=== PATIENT | female | born 1970 | race Caucasian/White ===

== ENCOUNTER 2019-08-20 11:01 | Emergency (ER) | payer BC, SELFPAY ==
[2019-08-20 11:38] VITALS: BP 122/73; PULSE 79; RESP 20; TEMP 37.3; O2SAT 99
--- NOTE | 2019-08-20 11:56 | ED.FEMALEGU ---
HPI - Female Genitourinary General Chief complaint: Urogenital-Female Stated complaint: pos bladder infection Time Seen by Provider: 08/20/19 11:56 Source: patient Mode of arrival: ambulatory Limitations: no limitations History of Present Illness HPI Narrative: A 49 y/o female, who is a nonsmoker/nondrinker, presents to with c/o dysuria for 1 day. She reports a subjective fever, urinary frequency, and back pain, but denies N/V. Pt has a PMHx of interstitial cystitis, UTIs, and vaginal yeast infections. Pt was on Elmiron for years, but stopped taking it after she changed jobs and her insurance did not cover the cost. Pt notes that she is currently on her period but her symptoms feel urinary related. It has been 3 years since her last UTI. Pt has been on Septra and Bactrim in the past. Pertinent past history: recurrent UTIs, interstitial cystits and other (vaginal yeast infection) Onset (ago): day(s) (1) Urinary symptoms: Dysuria and Frequency Related Data Allergies Allergy/AdvReac Type Severity Reaction Status Date / Time Iodinated Contrast Media Allergy Mild Rash Verified 08/20/19 11:35 iodine Allergy Unknown Rash Verified 08/20/19 11:35 Contrast Media Allergy Intermediate Rash Uncoded 06/26/15 07:36 Review of Systems Review of Systems: Narrative: General/Constitutional: Reports: subjective fever; Denies: weight loss Eyes: Denies: Redness,discharge Ears/Nose/Throat: Denies: Epistaxis,ear discharge Respiratory: Denies: Hemoptysis Gastrointestinal: Denies: N/V, Bleeding-rectal Urinary: Reports: dysuria, urinary frequency Musculoskeletal: Reports: back pain Skin: Denies: Lumps, eruption Neurologic: Denies: Focal Weakness,Sz Hematologic: Denies: Petechiae/Purpura Psychiatric: Denies: Suicidal ideation All systems reviewed & are unremarkable except as noted in HPI and below PMFSH Past Medical History Medical History (Updated 08/20/19 @ 12:12 by Alexa Anthony) Anxiety Depression Thyroid mass with needle Bx Surgical History Surgical History (Updated 08/20/19 @ 12:12 by Alexa Anthony) H/O cone biopsy of cervix H/O laparoscopy x3 Hx of cholecystectomy Family History Family History Sibling Hypertension Social History Social History Smoking status: Never smoker Alcohol intake: never Comments No PCP on file. At time of signature, agree with nursing past medical, surgical, social and family history. There is no relevant family history pertinent to the presenting complaint Exam Narrative: Exam Narrative: General Appearance: Well appearing, No distress EYE: PERRLA, Conjunctiva clear Ears: External ear normal Nose: Normal nose Mouth/Throat: Normal appearing, Normal lips Neck: Supple Respiratory: Airway patent, No respiratory distress Cardiovascular: RRR Abdomen: Soft, Non-tender, No masses Musculoskeletal: Full ROM Skin: Warm, Dry Neurological: A&O x3, CN II-X intact Psychiatric: Normal mood, Normal affect Course Vital Signs Vital signs: Vital Signs Temperature 99.2 F 08/20/19 11:38 Pulse Rate 79 08/20/19 11:38 Respiratory Rate 20 08/20/19 11:38 Blood Pressure 122/73 08/20/19 11:38 Pulse Oximetry 99 08/20/19 11:38 Temperature 99.2 F 08/20/19 11:38 Pulse Rate 79 08/20/19 11:38 Respiratory Rate 20 08/20/19 11:38 Blood Pressure 122/73 08/20/19 11:38 Pulse Oximetry 99 08/20/19 11:38 MDM - Female Genitourinary Lab Data Labs: Urine Glucose Negative Reference Range: Negative Urine Bilirubin 1+ Reference Range: Negative Urine Ketone Trace Reference Range: Negative Urine Specific [place] 1.030 Reference Range:1.001-1.035 Urine Blood 2+ Reference Range: Negative * * Urin
== END 2019-08-20 12:09 | disposition home or self-care (01) ==
PROVIDERS: Emergency Provider Emergency Medicine; PCP Family Medicine
DX: N30.00 Acute cystitis without hematuria (principal)
CPT/HCPCS: 81003; 87077; 87086; 87088; 87186; 99213; G0463